=== PATIENT | female | born 1975 | race Caucasian/White ===

== ENCOUNTER 2017-01-31 00:40 | Emergency (ER) | payer OTHER ==
[~2017-01-31] VITALS: Ht 170.2 cm; Wt 79.4 kg
[~2017-01-31 00:40] MED LIST: AMITRIPTYLINE H10 MG PO
[2017-01-31 04:14] VITALS: BP 129/66
== END 2017-01-31 04:15 | disposition home or self-care (01) ==
LOC: EXP 00:40 → EME 00:40 → EXP 04:15
DX: L91.8 Other hypertrophic disorders of the skin (principal); S40.812A Abrasion of left upper arm, initial encounter; F17.200 Nicotine dependence, unspecified, uncomplicated
CPT/HCPCS: 99281; 99283